=== PATIENT | female | born 1945 | race Caucasian/White ===

== ENCOUNTER → 2017-04-01 | Outpatient (CLI) | payer MEDICARE, OTHER | LOC: OPSV 06:58 | DX: K90.9 Intestinal malabsorption, unspecified (principal); D50.9 Iron deficiency anemia, unspecified | CPT/HCPCS: 96365; J7050 ==

== ENCOUNTER → 2017-04-08 | Outpatient (CLI) | payer MEDICARE, OTHER ==
[~2017-04-08] VITALS: Ht 162.6 cm; Wt 85.7 kg
== END ==
LOC: OPSV 06:55
DX: D50.9 Iron deficiency anemia, unspecified (principal); K90.9 Intestinal malabsorption, unspecified
CPT/HCPCS: 96365; J7050